=== PATIENT | male | born 1990 | race Caucasian/White ===

== ENCOUNTER 2021-03-29 04:55 | Inpatient (IN) | payer BC ==
[~2021-03-29] VITALS: Ht 162.6 cm; Wt 85.7 kg
[2021-03-29 05:08] VITALS: BP 112/67
[2021-03-29] MEDS ORDERED: PROAIR HFA8.5 GM INH (05:17)
[2021-03-29] MEDS ORDERED: MEDROL4 M1 PO (05:17)
[2021-03-29 06:48] LABS: BE 1.1 mmol/L (-2 to +3); PCO2 33.9 mmHg (35.0-45.0); PO2 77.5 mmHg (75.0-100.0); pH 7.471 (7.340-7.450)
[2021-03-29 07:35] LABS: HEMATOCRIT 41.2 % (42.0-52.0); MCH 27.6 pg (26.0-34.0); MCHC 33.9 g/dL (28.0-37.0); MCV 81.5 fL (80.0-100.0); MPV 7.9 fl. (7.2-11.1); NUCLEATED RBCS 0 /100WBC; PLATELET COUNT* 223 thou/uL (150-400); RBC 5.05 mil/uL (4.50-6.00); RDW-CV 13.2 % (10.5-14.5); WBC 9.6 thou/uL (4.0-11.0)
[2021-03-29 07:39] LABS: CALCIUM 8.4 mg/dL (8.5-10.1); CREATININE 1.1 mg/dL (0.6-1.3); POTASSIUM 3.9 mmol/L (3.5-5.1)
[2021-03-29 07:43] LABS: ALBUMIN 3.2 g/dL (3.4-5.0); TOTAL BILIRUBIN 0.7 mg/dL (<0.1-1.0); TOTAL PROTEIN 7.2 g/dL (6.4-8.2)
[2021-03-29 09:00] LABS: ABSOLUTE LYMPHOCYTES 0.8 thou/uL (0.8-5.3); ABSOLUTE MONOCYTES 0.2 thou/uL (0.0-1.2); ABSOLUTE NEUTROPHILS 8.6 thou/uL (1.6-8.1); PLATELET ESTIMATE ADEQUATE
[2021-03-29 10:30] VITALS: BP 112/68
[2021-03-29 14:30] VITALS: BP 112/71
[2021-03-29 18:15] VITALS: BP 116/69
[2021-03-29 19:54] LABS: INFLUENZA A ANTIGEN Negative (Negative); INFLUENZA B ANTIGEN Negative (Negative)
[2021-03-29 20:23] VITALS: BP 107/61
== END 2021-03-29 20:30 | disposition left against medical advice (07) | DRG 177 ==
LOC: M.ERS 04:55 → M.TBA-ER 06:37
PROVIDERS: Internal Medicine; Personal Emergency Response Attendant; ADMIT Internal Medicine; ATTEND Internal Medicine
PROC: XW033E5 Introduction of Remdesivir Anti-infective into Peripheral Vein, Percutaneous Approach, New Technology Group 5 (ICD-10-PCS; principal; 2021-03-29)
DX: U07.1 COVID-19 (principal); J12.82 Pneumonia due to coronavirus disease 2019; J96.01 Acute respiratory failure with hypoxia; Z53.29 Procedure and treatment not carried out because of patient's decision for other reasons